=== PATIENT | male | born 1990 | race Caucasian/White ===

== ENCOUNTER 2018-02-28 04:35 | Emergency (ER) | payer SELFPAY ==
[2018-02-28] MEDS ORDERED: Lidocaine 1% (PF) 30 ML VIAL ONE (04:46)
[2018-02-28] MEDS ORDERED: Bacitracin Zinc 1 Packet ONE (05:27)
== END 2018-02-28 05:45 | disposition home or self-care (01) ==
LOC: ERS 04:35
DX: S61.412A Laceration without foreign body of left hand, initial encounter (principal); W25.XXXA Contact with sharp glass, initial encounter
CPT/HCPCS: 12001; J2001